=== PATIENT | male | born 1980 | race Caucasian/White ===

== ENCOUNTER 2021-12-18 18:53 | Emergency (ER) | payer SELFPAY ==
[~2021-12-18] VITALS: Ht 167.6 cm; Wt 72.0 kg
[2021-12-18] MEDS ORDERED: BACITRACIN ZINC OINT UDPKT TOP ONE (21:30)
[2021-12-18] MEDS ORDERED: IBUPROFEN 400MG TABLET PO ONE (21:30)
[2021-12-18] MEDS ORDERED: IBUP-2028 MT (22:31)
[2021-12-18 22:50] VITALS: BP 108/58
== END 2021-12-18 22:51 | disposition home or self-care (01) ==
LOC: ER 18:53
DX: M25.511 Pain in right shoulder (principal); M79.631 Pain in right forearm; V49.9XXA Car occupant (driver) (passenger) injured in unspecified traffic accident, initial encounter; Y93.89 Activity, other specified; Y92.89 Other specified places as the place of occurrence of the external cause; Y99.8 Other external cause status
CPT/HCPCS: 73030; 73090; 99284